=== PATIENT | male | born 1975 | race African-American/Black ===

== ENCOUNTER → 2016-08-19 | Outpatient (CLI) | payer BC | END | disposition home or self-care (01) | LOC: PCVCIMAG 15:17 | PROVIDERS: ATTEND Internal Medicine | DX: I10 Essential (primary) hypertension (principal); R94.31 Abnormal electrocardiogram [ECG] [EKG]; R07.9 Chest pain, unspecified | CPT/HCPCS: 93325; 93351 ==

== ENCOUNTER → 2018-05-28 | Outpatient (CLI) | payer BC ==
--- NOTE | 2018-05-28 12:33 | PCVCIMAG ---
APPROVED REPORT Study performed: 05/28/2018 10:19:22 Exam: Stress Echocardiogram Indication: abn ekg, dyspnea on exertion, htn, sleep apnea Patient Location: Echo lab Stress Nurse: Meghna Grullon RN Status: routine Ht: 5 ft 11 in HR: 59 bpm BP: 152/100 mmHg Rhythm: NSR Procedure The patient underwent an Exercise Stress Test using the Sim Protocol. Blood pressure, heart rate, and EKG were monitored. An Echocardiogram was performed by maintenance service technician in four stages in quad fashion. At peak stress, four selected images were obtained and placed side by side with resting images for comparison. Stress Test Details Stress Test: Exercise stress testing was performed using a Sim protocol. HR Resting HR: 59 bpmMax Heart Rate (APMHR): 180 bpm Max HR Achieved: 139 bpmTarget HR (85% APMHR): 153 bpm % of APMHR: 77 Recovery HR: 86 bpm HR response to stress: Normal HR response to stress BP Resting BP: 152/100 mmHg Max BP: 200/100 mmHg Recovery BP: 170/100 mmHg BP response to stress: Normal blood pressure response to stress. ECG Resting ECG: Sinus Rhythm, nonspecific ST-T abnormalities Stress ECG: Sinus Rhythm ST Change: Normal Maximum ST Deviation: 0 mm Arrhythmia: None Recovery ECG: Sinus Rhythm Recovery ST Change: Normal Recovery ST Deviation: 0 mm Recovery Arrhythmia: rare isolated PVC Clinical Reason for Termination: Maximal effort Stress Symptoms: Dyspnea, Fatigue Exercise duration: 8 min 28 sec Highest Stage Achieved: Stage 3: 3.4 mph at 14% grade. Exercise capacity: 10.4 METs Overall Exercise Capacity for Age: Normal Scale: Active Angina Score: None Stress ECG Conclusion Normal submaximal stress test. Gallagher Treadmill Score is 8.0 which is Low risk. Pre-Stress Echo The resting Echocardiogram showed normal left ventricular contractility with an estimated Ejection Fraction of about >55%. Normal wall motion in all segments on baseline images. Post-Stress Echo The stress Echocardiogram showed normal left ventricular contractility with an estimated Ejection Fraction of about 65%. Normal augmentation of wall motion in all segments on post stress images. Clinical No clinical or ECG evidence for ischemia. Conclusion Clinical Response: Non-ischemic Exercise Capacity: Average Stress ECG Response: Non-ischemic Stress Echo Images: Non-ischemic Normal stress echocardiogram with submaximal exercise stress. Mild to moderate concentric left ventricular hypertrophy. Resting inferior and lateral T wave inversion results in upright position prior to exercise. Other Information Study Quality: Adequate <Conclusion> Normal stress echocardiogram with submaximal exercise stress. Mild to moderate concentric left ventricular hypertrophy. Resting inferior and lateral T wave inversion results in upright position prior to exercise.
== END | disposition home or self-care (01) ==
LOC: PCVCIMAG 10:35
PROVIDERS: ATTEND Internal Medicine
DX: I10 Essential (primary) hypertension (principal); R94.31 Abnormal electrocardiogram [ECG] [EKG]; R07.9 Chest pain, unspecified; R06.09 Other forms of dyspnea
CPT/HCPCS: 93325; 93351